=== PATIENT | male | born 1975 | race Caucasian/White ===

== ENCOUNTER 2016-07-07 14:04 | Observation (INO) | payer OTHER ==
[~2016-07-07] VITALS: Ht 182.9 cm; Wt 84.0 kg
[2016-07-07 14:42] LABS: BASO # 0.1 10_X3_uL (0.0-0.1); BASO % 1.3 % (0.2-1.2); GRAN # 3.7 10_X3_uL (1.8-5.4); GRAN % 69.1 % (34.0-67.9); HEMATOCRIT 45.1 % (40-51); HEMOGLOBIN 15.9 g/dL (13.7-17.5); LYMPH # 1.3 10_X3_uL (1.3-3.6); MEAN CORPUSCULAR HEMOGLOBIN 33.8 pg (27.0-33.0); MEAN CORPUSCULAR HGB CONC 35.3 g/dL (32.0-36.0); MEAN CORPUSCULAR VOLUME 95.8 fL (79-92); MEAN PLATELET VOLUME 9.6 fl (7.5-11.5); MONO # 0.3 10_X3_uL (0.3-0.8); MONO % 5.6 % (5.3-12.2); PLATELET COUNT 227 x10_3/uL (163-337); RED BLOOD COUNT 4.71 x10_6/uL (4.6-6.1); RED CELL DISTRIBUTION WIDTH 14.9 % (11.6-14.4); WHITE BLOOD COUNT 5.3 x10_3/uL (4.2-9.1)
[2016-07-07 14:54] LABS: ALBUMIN 4.9 gm/dL (3.4-5.0); ALKALINE PHOSPHATASE 65 U/L (50-136); ALT/SGPT 122 U/L (7.53-40.17); AMYLASE 83 U/L (15.62-74.58); AST/SGOT 116 U/L (6.66-35.34); BILIRUBIN,TOTAL 1.13 mg/dL (0.0-1.0); BLOOD UREA NITROGEN 14 mg/dL (7-18); CARBON DIOXIDE 29 mmol/L (21-32); CREATININE 0.5 mg/dL (0.6-1.3); GLUCOSE,RANDOM 119 mg/dL (70-99); LIPASE 56 U/L (6.75-60.75); MAGNESIUM 1.7 mg/dL (1.8-2.4); PHOSPHOROUS 2.8 mg/dL (2.5-4.9); POTASSIUM 4.4 mmol/L (3.5-5.1); SODIUM 141 mmol/L (136-145); TOTAL PROTEIN 8.4 gm/dL (6.4-8.2)
[2016-07-08 07:05] LABS: BLOOD UREA NITROGEN 10 mg/dL (7-18); CALCIUM 9.4 mg/dL (8.7-10.7); CARBON DIOXIDE 27 mmol/L (21-32); CREATININE < 0.5 mg/dL (0.6-1.3); GLUCOSE,RANDOM 113 mg/dL (70-99); POTASSIUM 3.7 mmol/L (3.5-5.1); SODIUM 133 mmol/L (136-145)
[2016-07-08 07:10] LABS: BASO % 0.7 % (0.2-1.2); EOS # 0.1 10_X3_uL (0.0-0.5); EOS % 1.1 % (0.8-7.0); GRAN # 2.3 10_X3_uL (1.8-5.4); GRAN % 48.8 % (34.0-67.9); HEMATOCRIT 40.9 % (40-51); HEMOGLOBIN 14.4 g/dL (13.7-17.5); LYMPH # 1.8 10_X3_uL (1.3-3.6); LYMPH % 39.9 % (21.8-53.1); MEAN CORPUSCULAR HEMOGLOBIN 33.6 pg (27.0-33.0); MEAN CORPUSCULAR HGB CONC 35.2 g/dL (32.0-36.0); MEAN CORPUSCULAR VOLUME 95.6 fL (79-92); MEAN PLATELET VOLUME 10.3 fl (7.5-11.5); MONO # 0.4 10_X3_uL (0.3-0.8); MONO % 9.5 % (5.3-12.2); PLATELET COUNT 197 x10_3/uL (163-337); RED BLOOD COUNT 4.28 x10_6/uL (4.6-6.1); RED CELL DISTRIBUTION WIDTH 14.3 % (11.6-14.4); WHITE BLOOD COUNT 4.6 x10_3/uL (4.2-9.1)
[2016-07-08 09:53] LABS: ALBUMIN 4.2 gm/dL (3.4-5.0); BILIRUBIN,DIRECT 0.28 mg/dL (0.0-0.30); BILIRUBIN,TOTAL 1.63 mg/dL (0.0-1.0); INDIRECT BILIRUBIN 1.4 Meq/L (8-16); TOTAL PROTEIN 7.4 gm/dL (6.4-8.2)
[2016-07-08 09:54] LABS: CKMB 1.4 ng/ml (0.0-5.0)
[2016-07-08 10:03] LABS: TROP-I < 0.30 NG/ML (0.00-0.30)
[2016-07-08 15:41] LABS: CKMB 1.9 ng/ml (0.0-5.0)
[2016-07-08 15:42] LABS: TROP-I < 0.30 NG/ML (0.00-0.30)
[2016-07-11 10:52] LABS: HBS AG SCREEN Non Reactive (NR); HCV Reactive (NR)
== END 2016-07-08 15:28 | disposition home or self-care (01) ==
LOC: ER 14:04 → MS 17:40 → UNDODEPER 07-10 10:36
PROVIDERS: Emergency Medicine; Family Medicine; ADMIT Family Medicine
DX: F10.239 Alcohol dependence with withdrawal, unspecified (principal); R07.9 Chest pain, unspecified; R11.2 Nausea with vomiting, unspecified; R25.1 Tremor, unspecified; I10 Essential (primary) hypertension; R45.1 Restlessness and agitation; R94.5 Abnormal results of liver function studies; Z83.3 Family history of diabetes mellitus; Z80.9 Family history of malignant neoplasm, unspecified; Z82.49 Family history of ischemic heart disease and other diseases of the circulatory system; Z83.6 Family history of other diseases of the respiratory system; Z88.0 Allergy status to penicillin
CPT/HCPCS: 36415; 80048; 80053; 80074; 80076; 82150; 82553; 82607; 83690; 83735; 84100; 85025; 96361; 96365; 96375; 96376; 99070; 99285-25; G0378; G0480

== ENCOUNTER 2016-07-07 14:04 | Emergency (ER) | payer OTHER | END 2016-07-07 17:40 | disposition other institution (70) | LOC: ER 14:04 | DX: F10.239 Alcohol dependence with withdrawal, unspecified (principal); R00.0 Tachycardia, unspecified; R11.10 Vomiting, unspecified; I10 Essential (primary) hypertension; R45.1 Restlessness and agitation | CPT/HCPCS: 99285-25 ==

== ENCOUNTER 2016-07-23 20:30 | Observation (INO) | payer OTHER ==
[~2016-07-23] VITALS: Ht 182.9 cm; Wt 87.0 kg
[2016-07-23 21:16] LABS: BASO # 0.1 10_X3_uL (0.0-0.1); BASO % 2.4 % (0.2-1.2); GRAN % 36.9 % (34.0-67.9); HEMATOCRIT 46.2 % (40-51); HEMOGLOBIN 16.3 g/dL (13.7-17.5); LYMPH % 56.2 % (21.8-53.1); MEAN CORPUSCULAR HGB CONC 35.3 g/dL (32.0-36.0); MEAN CORPUSCULAR VOLUME 96.3 fL (79-92); MEAN PLATELET VOLUME 9.3 fl (7.5-11.5); MONO # 0.2 10_X3_uL (0.3-0.8); MONO % 4.5 % (5.3-12.2); PLATELET COUNT 210 x10_3/uL (163-337); RED CELL DISTRIBUTION WIDTH 14.1 % (11.6-14.4); WHITE BLOOD COUNT 5.3 x10_3/uL (4.2-9.1)
[2016-07-23 21:25] LABS: ALKALINE PHOSPHATASE 78 U/L (50-136); ALT/SGPT 105 U/L (7.53-40.17); AST/SGOT 136 U/L (6.66-35.34); BILIRUBIN,TOTAL 0.78 mg/dL (0.0-1.0); BLOOD UREA NITROGEN 17 mg/dL (7-18); CALCIUM 9.4 mg/dL (8.7-10.7); CARBON DIOXIDE 27 mmol/L (21-32); CREATININE 0.6 mg/dL (0.6-1.3); GLUCOSE,RANDOM 131 mg/dL (70-99); POTASSIUM 4.4 mmol/L (3.5-5.1); SODIUM 141 mmol/L (136-145); TOTAL PROTEIN 8.8 gm/dL (6.4-8.2)
[2016-07-23 21:37] LABS: ETHYL ALCOHOL 309 mg/dl
[2016-07-24 07:12] LABS: BASO # 0.1 10_X3_uL (0.0-0.1); BASO % 1.4 % (0.2-1.2); EOS % 0.7 % (0.8-7.0); GRAN # 1.5 10_X3_uL (1.8-5.4); GRAN % 36.4 % (34.0-67.9); HEMATOCRIT 42.6 % (40-51); HEMOGLOBIN 14.6 g/dL (13.7-17.5); LYMPH # 2.2 10_X3_uL (1.3-3.6); LYMPH % 52.1 % (21.8-53.1); MEAN CORPUSCULAR HEMOGLOBIN 33.3 pg (27.0-33.0); MEAN CORPUSCULAR HGB CONC 34.3 g/dL (32.0-36.0); MEAN CORPUSCULAR VOLUME 97.3 fL (79-92); MEAN PLATELET VOLUME 9.7 fl (7.5-11.5); MONO # 0.4 10_X3_uL (0.3-0.8); MONO % 9.4 % (5.3-12.2); PLATELET COUNT 165 x10_3/uL (163-337); RED BLOOD COUNT 4.38 x10_6/uL (4.6-6.1); RED CELL DISTRIBUTION WIDTH 13.6 % (11.6-14.4); WHITE BLOOD COUNT 4.2 x10_3/uL (4.2-9.1)
[2016-07-24 07:30] LABS: BLOOD UREA NITROGEN 12 mg/dL (7-18); CALCIUM 9.4 mg/dL (8.7-10.7); CARBON DIOXIDE 25 mmol/L (21-32); CREATININE 0.5 mg/dL (0.6-1.3); GLUCOSE,RANDOM 105 mg/dL (70-99); SODIUM 136 mmol/L (136-145)
[2016-07-24 07:59] LABS: INR 1.1 (1.0-1.1); PARTIAL THROMBOPLASTIN TIME 27.4 SECONDS (21.8-28.4)
[2016-07-25 07:22] LABS: HEMATOCRIT 42.8 % (40-51); HEMOGLOBIN 15.2 g/dL (13.7-17.5); MEAN CORPUSCULAR HEMOGLOBIN 33.8 pg (27.0-33.0); MEAN CORPUSCULAR HGB CONC 35.5 g/dL (32.0-36.0); MEAN CORPUSCULAR VOLUME 95.1 fL (79-92); MEAN PLATELET VOLUME 9.7 fl (7.5-11.5); RED BLOOD COUNT 4.5 x10_6/uL (4.6-6.1); RED CELL DISTRIBUTION WIDTH 12.9 % (11.6-14.4); WHITE BLOOD COUNT 5.6 x10_3/uL (4.2-9.1)
[2016-07-25 07:39] LABS: BLOOD UREA NITROGEN 9 mg/dL (7-18); CALCIUM 9.8 mg/dL (8.7-10.7); CARBON DIOXIDE 24 mmol/L (21-32); CREATININE 0.5 mg/dL (0.6-1.3); GLUCOSE,RANDOM 122 mg/dL (70-99); PHOSPHOROUS 3.5 mg/dL (2.5-4.9); POTASSIUM 3.9 mmol/L (3.5-5.1); SODIUM 133 mmol/L (136-145)
== END 2016-07-25 12:57 | disposition home or self-care (01) ==
LOC: ER 20:30 → MS 07-24 01:46
PROVIDERS: Emergency Medicine; ADMIT Family Medicine
DX: F10.239 Alcohol dependence with withdrawal, unspecified (principal); I10 Essential (primary) hypertension; F41.9 Anxiety disorder, unspecified; R51 Headache; R42 Dizziness and giddiness; M54.9 Dorsalgia, unspecified; Z87.828 Personal history of other (healed) physical injury and trauma; R07.9 Chest pain, unspecified; Y90.8 Blood alcohol level of 240 mg/100 ml or more; Z88.0 Allergy status to penicillin; Z82.49 Family history of ischemic heart disease and other diseases of the circulatory system; Z83.3 Family history of diabetes mellitus
CPT/HCPCS: 36415; 80048; 80053; 80307; 83735; 84100; 85025; 85610; 85730; 86803; 93005; 96361; 96365; 96366; 96367; 96375; 96376; 99070; 99285-25; G0378; G0480